=== PATIENT | female | born 1945 | race Caucasian/White ===

== ENCOUNTER 2016-10-27 11:54 | Emergency (ER) | payer MEDICARE, MEDICAID ==
[2016-10-27] MEDS ORDERED: Sodium Chloride 0.9% 1,000 ML ONE (12:14)
[2016-10-27] MEDS ORDERED: Ketorolac Tromethamine 30 MG/ML VIAL ONE (13:30)
== END 2016-10-27 14:04 | disposition home or self-care (01) ==
LOC: NAV ERS 11:54
DX: T63.461A Toxic effect of venom of wasps, accidental (unintentional), initial encounter (principal); F41.9 Anxiety disorder, unspecified
CPT/HCPCS: 96361; 96374; J1885; J7050

== ENCOUNTER 2018-05-28 11:11 | Outpatient (CLI) | payer MEDICARE, MEDICAID ==
--- NOTE | 2018-05-28 13:05 | RAD ---
THORACIC SPINE THREE VIEWS: 05/28/18 HISTORY: Fall, back pain. FINDINGS/IMPRESSION: There are degenerative changes with S-shaped scoliosis of the thoracolumbar spine. No acute fractur e or subluxation is identified. POS: GLADIS
== END 2018-05-28 11:12 | disposition home or self-care (01) ==
LOC: NAV RAD 11:11
PROVIDERS: ATTEND Family Medicine
DX: W19.XXXS Unspecified fall, sequela (principal); M47.814 Spondylosis without myelopathy or radiculopathy, thoracic region; M41.9 Scoliosis, unspecified
CPT/HCPCS: 72072

== ENCOUNTER 2018-09-17 08:20 | Outpatient (CLI) | payer MEDICARE, OTHER ==
--- NOTE | 2018-09-17 17:11 | ULT ---
ULTRASOUND ABDOMEN LIMITED: (RIGHT UPPER QUADRANT) 09/17/18 HISTORY: R14.0, bloated abdomen in 73-year-old female. Abdominal pain. FINDINGS: Gallbladder: Numerous mobile gallstones and sludge balls. Normal mural thickness. No sonographic Murp hy's sign or pericholecystic fluid. Common duct: 4 mm. Liver: Normal size and echogenicity. Pancreas: Nonspecific sonographic appearance. Right kidney: No hydronephrosis. IMPRESSION: Positive for cholelithiasis without evidence of acute cholecystitis. HORACE Rodriguez POS: MAHENDRA
== END 2018-09-17 08:21 | disposition home or self-care (01) ==
LOC: NAV ULT 08:20
PROVIDERS: ATTEND Family Medicine
DX: R14.0 Abdominal distension (gaseous) (principal); K80.20 Calculus of gallbladder without cholecystitis without obstruction
CPT/HCPCS: 76705

== ENCOUNTER 2021-09-02 16:12 | Outpatient (CLI) | payer MEDICARE, OTHER | END 2021-09-02 16:13 | disposition home or self-care (01) | LOC: NAV RAD 16:12 | PROVIDERS: ATTEND Nurse Practitioner Family | DX: J06.9 Acute upper respiratory infection, unspecified (principal) | CPT/HCPCS: 71046 ==

== ENCOUNTER 2021-09-04 17:36 | Emergency (ER) | payer OTHER, MEDICARE | END 2021-09-04 18:15 | disposition home or self-care (01) | LOC: NAV ERS 17:36 | DX: S09.90XA Unspecified injury of head, initial encounter (principal); E78.5 Hyperlipidemia, unspecified; E78.00 Pure hypercholesterolemia, unspecified; W01.198A Fall on same level from slipping, tripping and stumbling with subsequent striking against other object, initial encounter; Z79.899 Other long term (current) drug therapy | CPT/HCPCS: 99283 ==

== ENCOUNTER 2022-01-22 21:30 | Emergency (ER) | payer OTHER ==
[2022-01-22] MEDS ORDERED: Ibuprofen 200 MG TAB ONE (21:56)
== END 2022-01-22 22:40 | disposition home or self-care (01) ==
LOC: NAV ERS 21:30
DX: S92.244A Nondisplaced fracture of medial cuneiform of right foot, initial encounter for closed fracture (principal); E78.5 Hyperlipidemia, unspecified; X58.XXXA Exposure to other specified factors, initial encounter

== ENCOUNTER 2023-01-18 09:43 | Emergency (ER) | payer OTHER, MEDICAID ==
[2023-01-18] MEDS ORDERED: Bacitracin 1 PK ONE (10:23)
== END 2023-01-18 10:31 | disposition home or self-care (01) ==
LOC: NAV ERS 09:43
DX: S81.811A Laceration without foreign body, right lower leg, initial encounter (principal); E78.00 Pure hypercholesterolemia, unspecified; W20.8XXA Other cause of strike by thrown, projected or falling object, initial encounter
CPT/HCPCS: 99283

== ENCOUNTER 2023-04-23 10:48 | Outpatient (CLI) | payer OTHER, MEDICAID | END 2023-04-23 10:49 | disposition home or self-care (01) | LOC: NAV RAD 10:48 | PROVIDERS: ATTEND Nurse Practitioner Family | DX: M25.512 Pain in left shoulder (principal); M54.2 Cervicalgia; M47.812 Spondylosis without myelopathy or radiculopathy, cervical region; M19.012 Primary osteoarthritis, left shoulder | CPT/HCPCS: 72040 ==

== ENCOUNTER 2024-05-17 00:27 | Emergency (ER) | payer OTHER, MEDICAID ==
[2024-05-17] MEDS ORDERED: Boostrix 0.5 ML (Tdap) VIAL (>/=7 yrs of age) ONE (00:53)
[2024-05-17] MEDS ORDERED: Acetaminophen 325 MG TAB ONE (00:53)
== END 2024-05-17 02:40 | disposition home or self-care (01) ==
LOC: NAV ERS 00:27
DX: S00.83XA Contusion of other part of head, initial encounter (principal); S50.02XA Contusion of left elbow, initial encounter; S50.01XA Contusion of right elbow, initial encounter; M50.30 Other cervical disc degeneration, unspecified cervical region; E04.2 Nontoxic multinodular goiter; D38.1 Neoplasm of uncertain behavior of trachea, bronchus and lung; W01.10XA Fall on same level from slipping, tripping and stumbling with subsequent striking against unspecified object, initial encounter
CPT/HCPCS: 70450; 72125; 90715

== ENCOUNTER 2024-05-20 18:12 | Emergency (ER) | payer OTHER, MEDICAID | END 2024-05-20 19:22 | disposition home or self-care (01) | LOC: NAV ERS 18:12 | DX: S00.93XA Contusion of unspecified part of head, initial encounter (principal); W18.30XA Fall on same level, unspecified, initial encounter | CPT/HCPCS: 99283 ==

== ENCOUNTER 2025-04-14 08:44 | Outpatient (CLI) | payer OTHER, MEDICAID | END 2025-04-14 08:45 | disposition home or self-care (01) | LOC: NAV RAD 08:44 | PROVIDERS: ATTEND Nurse Practitioner Family | DX: M25.562 Pain in left knee (principal) ==